=== PATIENT | female | born 1990 | race Caucasian/White ===

== ENCOUNTER 2020-03-28 04:41 | Emergency (ER) | payer SELFPAY ==
[~2020-03-28] VITALS: Ht 170.2 cm; Wt 86.2 kg
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
--- NOTE | 2020-03-28 05:14 | NUR ---
BLOOD COLLECTED AND SENT TO LAB.
[2020-03-28 05:27] LABS: CALCIUM, SERUM 9.3 mg/dL (8.5-10.1); CREATININE 0.7 mg/dL (0.6-1.3); POTASSIUM 3.5 mmol/L (3.5-5.1)
[2020-03-28] MEDS ORDERED: LIDOCAINE 1%-EPI 1:100,000 20 ML VIAL ONE (06:12)
[2020-03-28 06:22] LABS: EOSINOPHILS % (AUTO) 2.7 % (0.0-6.0); HEMOGLOBIN 13.3 g/dL (11.5-14.8); MEAN CORPUSCULAR HGB CONC 33 g/dl (31.0-36.0); MONOCYTES # (AUTO) 1.1 /CMM (0.1-1.30)
[2020-03-28 06:27] LABS: BASOPHILS % (AUTO) 0.4 % (0.0-2.0); HEMATOCRIT 41 % (33-45); LYMPHOCYTES % (AUTO) 18.6 % (20.0-44.0); MEAN CORPUSCULAR VOLUME 90 fL (82-100); MONOCYTES % (AUTO) 10.2 % (2.0-12.0); NEUTROPHILS # (AUTO) 7.2 /CMM (1.8-8.9); NEUTROPHILS % (AUTO) 68.1 % (43.0-81.0); PLATELET COUNT (AUTO) 292 /CMM (150-450); RED BLOOD CELL COUNT(AUTO) 4.51 MIL/uL (4.0-5.2); WHITE BLOOD COUNT (AUTO) 10.5 K/uL (4.3-11.0)
--- NOTE | 2020-03-28 06:29 | NUR ---
PT TAKEN TO CT
--- NOTE | 2020-03-28 06:40 | NUR ---
PT BACK FROM CT
--- NOTE | 2020-03-28 06:44 | NUR ---
DR RIVERS AT BEDSIDE
--- NOTE | 2020-03-28 06:56 | NUR ---
Patient discharged to home in stable condition. Written and verbal after care instructions given. Patient verbalizes understanding of instruction.IV removed. Catheter intact and site benign. Pressure and 4x4 applied to site. No bleeding noted.pt.ambulatory with a steady gait
[2020-03-28 06:57] VITALS: BP 129/69
== END 2020-03-28 07:03 | disposition home or self-care (01) ==
LOC: ER 04:44
DX: S01.01XA Laceration without foreign body of scalp, initial encounter (principal); R55 Syncope and collapse; W18.39XA Other fall on same level, initial encounter; Y93.89 Activity, other specified; Y92.091 Bathroom in other non-institutional residence as the place of occurrence of the external cause; Y99.8 Other external cause status
CPT/HCPCS: 12002; 36415; 70450; 80048; 84703; 85025; 99284; J3490